=== PATIENT | male | born 2000 | race Caucasian/White ===

== ENCOUNTER 2021-05-29 02:21 | Emergency (ER) | payer SELFPAY ==
[~2021-05-29] VITALS: Ht 27.9 cm; Wt 84.1 kg
[2021-05-29 02:28] VITALS: TEMP 98.9
[2021-05-29 03:08] LABS: BASO # 0.1 K/mm3 (0.0-0.2); BASO % 0.6 % (0.0-2.0); EOS % 0.4 % (0.0-4.0); GRAN # 5.4 K/mm3 (1.4-6.5); GRAN % 56.8 % (42.2-75.2); HEMATOCRIT 44.1 % (42.0-52.0); HEMOGLOBIN 15.7 g/dl (13.5-18.0); LYMPH # 3.3 K/mm3 (1.2-3.4); LYMPH % 34.5 % (20.0-51.0); MEAN CELL VOLUME 85 fl (80.0-100.0); MEAN CORPUSCULAR HEMOGLOBIN 30 pg (27-31); MEAN CORPUSCULAR HGB CONC 36 g/dl (33.0-37.0); MONO # 0.7 K/mm3 (0.1-0.6); MONO % 7.5 % (1.7-9.3); PLATELET COUNT 251 K/mm3 (130-400); RED BLOOD COUNT 5.22 M/mm3 (4.20-5.60); REDCELL DISTRIBUTION WIDTH-CV 11.9 % (11.5-14.5)
[2021-05-29 03:26] LABS: ALBUMIN 4.9 gm/dL (3.5-5.0); BILIRUBIN,TOTAL 0.5 mg/dL (0.2-1.2); CALCIUM 8.8 mg/dL (8.4-10.2); CREATININE, serum 1.26 mg/dL (0.72-1.25); POTASSIUM 3.7 mmol/L (3.5-4.5); TOTAL PROTEIN 7.6 gm/dL (6.2-8.1)
[2021-05-29] MEDS ORDERED: CEPHALEXIN500 M1 PO (05:51)
[2021-05-29] MEDS ORDERED: PERCOCET 325 MG1 TA2 PO (05:51)
[2021-05-29 06:16] VITALS: BP 138/87; PULSE 103
== END 2021-05-29 06:07 | disposition home or self-care (01) ==
LOC: COL.ER 02:21
PROVIDERS: Personal Emergency Response Attendant
DX: S09.90XA Unspecified injury of head, initial encounter (principal); S02.401A Maxillary fracture, unspecified side, initial encounter for closed fracture; S01.112A Laceration without foreign body of left eyelid and periocular area, initial encounter; S51.012A Laceration without foreign body of left elbow, initial encounter; S71.112A Laceration without foreign body, left thigh, initial encounter; Z23 Encounter for immunization; V49.40XA Driver injured in collision with unspecified motor vehicles in traffic accident, initial encounter; Y92.410 Unspecified street and highway as the place of occurrence of the external cause
CPT/HCPCS: J0696; J2270; J2405; Q9967

== ENCOUNTER → 2021-06-05 | Outpatient (CLI) | payer SELFPAY ==
[~2021-06-05] MED LIST: CEPHALEXIN500 M1 PO; PERCOCET 325 MG1 TA2 PO
[2021-06-05 09:44] VITALS: BP 149/78; PULSE 90; TEMP 98.1
== END ==
LOC: COL.ER 09:21
DX: Z48.02 Encounter for removal of sutures (principal)